=== PATIENT | female | born 1965 | race Two or more races ===

== ENCOUNTER 2025-02-20 15:10 | Emergency (ER) | payer OTHER ==
--- NOTE | 2025-02-20 15:36 | ED ---
Upper Extremity HPI - General Source: patient <Marycruz Lewis - Last Filed: 02/20/25 15:35> - General Source: patient, RN notes reviewed, old records reviewed Mode of arrival: ambulatory Limitations: no limitations - History of Present Illness MD Complaint: Injury to:: right, shoulder, arm -: week(s) Other Extremity Injury: Shoulder: Right Handedness: right Severity scale (1-10): 7 Improves With: none Worsens With: none Associated Symptoms: denies other symptoms Treatments Prior to Arrival: cold therapy <Mike Dumont - Last Filed: 02/20/25 22:36> - General Stated Complaint: R shoulder pain Time Seen by Provider: 02/20/25 15:35 - History of Present Illness Initial Comments: Quick [id number] female presenting for right shoulder pain. States pain has been worsening over the course of the week. Pain radiates to chest and down right arm. States she is having difficulty moving right upper extremity due to pain. Denies injury or trauma. (Marycruz Lewis) This is a 59-year-old female to the ER for evaluation of right shoulder pain. Patient has severe right shoulder pain patient has worsening pain pain worsening over the past week with chest pain and right arm pain. Difficult moving right upper extremity secondary to pain (Mike Dumont) - Related Data Allergies Allergy/AdvReac Type Severity Reaction Status Date / Time celecoxib Allergy Anaphylaxis Verified 02/20/25 15:56 Penicillins Allergy Anaphylaxis Verified 02/20/25 15:56 indomethacin [From Indocin] AdvReac Anaphylaxis Verified 02/20/25 15:56 lisinopril AdvReac Rapid Verified 02/20/25 15:56 Heart Rate metformin AdvReac Rapid Verified 02/20/25 15:56 Heart Rate metronidazole AdvReac Nausea & Verified 02/20/25 15:56 Vomiting NSAIDS (Non-Steroidal AdvReac Nausea & Verified 02/20/25 15:56 Anti-Inflamma Vomiting Sulfa (Sulfonamide AdvReac Nausea & Verified 02/20/25 15:56 Antibiotics) Vomiting triamcinolone AdvReac Nausea & Verified 02/20/25 15:56 Vomiting Review of Systems ROS Other: All systems not noted in ROS Statement are negative. <Marycruz Lewis - Last Filed: 02/20/25 15:35> ROS Other: All systems not noted in ROS Statement are negative. <Mike Dumont - Last Filed: 02/20/25 22:36> ROS Statement: Those systems with pertinent positive or pertinent negative responses have been documented in the HPI. General Exam <Marycruz Lewis - Last Filed: 02/20/25 15:35> General appearance: alert, in no apparent distress Head exam: Present: atraumatic, normocephalic, normal inspection Eye exam: Present: normal appearance, PERRL, EOMI. Absent: scleral icterus, conjunctival injection, periorbital swelling ENT exam: Present: normal exam, mucous membranes moist Neck exam: Present: normal inspection. Absent: tenderness, meningismus, lymphadenopathy Respiratory exam: Present: normal lung sounds bilaterally. Absent: respiratory distress, wheezes, rales, rhonchi, stridor Cardiovascular Exam: Present: regular rate, normal rhythm, normal heart sounds. Absent: systolic murmur, diastolic murmur, rubs, gallop, clicks GI/Abdominal exam: Present: soft, normal bowel sounds. Absent: distended, tenderness, guarding, rebound, rigid Extremities exam: Present: normal inspection, full ROM, normal capillary refill. Absent: tenderness, pedal edema, joint swelling, calf tenderness Back exam: Present: normal inspection Neurological exam: Present: alert, oriented X3, CN II-XII intact Psychiatric exam: Present: normal affect, normal mood Skin exam: Present: warm, dry, intact, normal color. Absent: rash <Mike Dumont - Last Filed: 02/20/25 22:36> - General Exam Comments Initial Comments: Visual Physical Exam General: Well-appearing, nontoxic, no acute distress. Head: Normocephalic, atraumatic Eyes: PERRLA, EOMI ENT: Airway patent Chest: Nonlabored breathing Skin: No visual rash, normal skin tone Neuro: Alert and oriented 3 Musculoskeletal: No gross abnormalities (Marycruz Lewis) Course <Mike Dumont - Last Filed: 02/20/25 22:36> Vital Signs 02/20/25 02/20/25 15:40 22:30 Temperature 98.9 F Pulse Rate 93 85 Respiratory 17 18 Rate Blood Pressure 176/103 139/78 O2 Sat by Pulse 96 97 Oximetry - Reevaluation(s) Reevaluation #1: 02/20/25 18:22 Medical records reviewed (Mike Dumont) Reevaluation #2: 02/20/25 18:22 Patient symptoms improving (Mike Dumont) Reevaluation #4: Was pt. sent in by a medical professional or institution (KAELYN Pang, DIRECTOR COMPENSATION, urgent care, hospital, or group home...) When possible be specific @ -no Did you speak to anyone other than the patient for history (EMS, parent, family, police, friend...)? What history was obtained from this source @ -no Did you review nursing and triage notes (agree or disagree)? Why? @ -agree Are old charts reviewed (outside hosp., previous admission, EMS record, old EKG, old radiological studies, urgent care reports/EKG's, group home records)? Report findings @ -yes Differential Diagnosis (chest pain, altered mental status, abdominal pain women, abdominal pain men, vaginal bleeding, weakness, fever, dyspnea, syncope, headache, dizziness, GI bleed, back pain, seizure, CVA, palpatations, mental health, musculoskeletal)? @ -prior EKG interpreted by me (3pts min.). @ -yes X-rays interpreted by me (1pt min.). @ -yes negative for acute disease CT interpreted by me (1pt min.). @ -no U/S interpreted by me (1pt. min.). @ -no What testing was considered but not performed or refused? (CT, X-rays, U/S, l abs)? Why? @ -none What meds were considered but not given or refused? Why? @ -none Did you discuss the management of the patient with other professionals (professionals i.e. KAELYN Pang, DIRECT[employer] COMPENSATION, lab, RT, psych nurse, social media coordinator, firearms sales associate, teacher, chief nursing officer, embedded case manager)? Give summary @ -no Was smoking cessation discussed for >3mins.? @ -no Was critical care preformed (if so, how long)? @ -no Were there social determinants of health that impacted care today? How? (Homelessness, low income, unemployed, alcoholism, drug addiction, transportation, low edu. Level, literacy, decrease access to med. care, usp, rehab)? @ -none Was there de-escalation of care discussed even if they declined (Discuss DNR or withdrawal of care, Hospice)? DNR status @ -no What co-morbidities impacted this encounter? (DM, HTN, Smoking, COPD, CAD, Cancer, CVA, ARF, Chemo, Hep., AIDS, mental health diagnosis, sleep apnea, morbid obesity)? @ -none Was patient admitted / discharged? Hospital course, mention meds given and route, prescriptions, significant lab abnormalities, going to OR and other pertinent info. @ - Undiagnosed new problem with uncertain prognosis? @ -no Drug Therapy requiring intensive monitoring for toxicity (Heparin, Nitro, Insulin, Cardizem)? @ -no Were any procedures done? @ -no Diagnosis/symptom? @ - Acute, or Chronic, or Acute on Chronic? @ -Acute Uncomplicated (without systemic symptoms) or Complicated (systemic symptoms)? @ -Complicated Side effects of treatment? @ -no Exacerbation, Progression, or Severe Exacerbation? @ -exacerbation Poses a threat to life or bodily function? How? (Chest pain, USA, OR, pneumonia, PE, COPD, DKA, ARF, appy, cholecystitis, CVA, Diverticulitis, Homicidal, Suicidal, threat to staff... and all critical care pts) @ -yes (Mike Dumont) Medical Decision Making <Marycruz Lewis - Last Filed: 02/20/25 15:35> - Lab Data Result diagrams: 02/20/25 18:20 02/20/25 18:20 - EKG Data -: EKG Interpreted by Me (EKG is sinus 85 HI 172 QRS 78 QTc 421) <Mike Dumont - Last Filed: 02/20/25 22:36> - Medical Decision Making I completed the quick note portion of this chart signed Marycruz Lewis PA-C (Marycruz Lewis) - Lab Data Lab Results 02/20/25 02/20/25 Range/Units 18:20 18:20 WBC 16.0 H (3.8-10.6) k/uL RBC 4.98 (3.80-5.40) m/uL Hgb 14.5 (11.4-16.0) gm/dL Hct 45.2 (34.0-46.0) % MCV 90.7 (80.0-100.0) fL MCH 29.1 (25.0-35.0) pg MCHC 32.1 (31.0-37.0) g/dL RDW 13.8 (11.5-15.5) % Plt Count 423 (150-450) k/uL MPV 7.9 Neutrophils % 71 % Lymphocytes % 21 % Monocytes % 4 % Eosinophils % 2 % Basophils % 0 % Neutrophils # 11.4 H (1.3-7.7) k/uL Lymphocytes # 3.3 (1.0-4.8) k/uL Monocytes # 0.7 (0-1.0) k/uL Eosinophils # 0.3 (0-0.7) k/uL Basophils # 0.1 (0-0.2) k/uL Sodium 138 (137-145) mmol/L Potassium 4.6 (3.5-5.1) mmol/L Chloride 101 (98-107) mmol/L Carbon Dioxide 26 (22-30) mmol/L Anion Gap 11 mmol/L BUN 18 H (7-17) mg/dL Creatinine 0.64 (0.52-1.04) mg/dL Est GFR (CKD-EPI)AfAm >90 (>60 ml/min/1.73 sqM) Est GFR (CKD-EPI)NonAf >90 (>60 ml/min/1.73 sqM) Glucose 137 H (74-99) mg/dL Calcium 9.3 (8.4-10.2) mg/dL Total Bilirubin 0.5 (0.2-1.3) mg/dL AST 29 (14-36) U/L ALT 33 (4-34) U/L Alkaline Phosphatase 93 (38-126) U/L Total Protein 8.0 (6.3-8.2) g/dL Albumin 4.8 (3.5-5.0) g/dL Disposition <Marycruz Lewis - Last Filed: 02/20/25 15:35> Is patient prescribed a controlled substance at d/c from ED?: No Time of Disposition: 22:35 <Mike Dumont - Last Filed: 02/20/25 22:36> Clinical Impression: Right shoulder pain Disposition: HOME SELF-CARE Condition: Good Instructions (If sedation given, give patient instructions): Swollen Joint (ED), Shoulder Pain (ED) Referrals: Damien Carvajal MD [Primary Care Provider] - 1-2 days Jairon Hidalgo MD [STAFF PHYSICIAN] - 1-2 days
--- NOTE | 2025-02-20 16:36 | XR ---
EXAMINATION TYPE: XR chest 2V DATE OF EXAM: 02/20/2025 4:26 PM COMPARISON: None. CLINICAL INDICATION: Female, 59 years old with history of right shoulder pain: Shortness of breath TECHNIQUE: XR chest 2V views of the chest are obtained. FINDINGS: Scattered senescent parenchymal changes noted. Hyperinflation compatible with COPD. No evidence for infiltrate. No evidence for atelectasis. Heart size is stable. Mediastinal structures are stable and grossly unremarkable. No evidence for hilar prominence. Degenerative changes dorsal spine. IMPRESSION: 1. No evidence for acute pulmonary disease. [facility], , 02/20/2025 4:33 PM
--- NOTE | 2025-02-20 16:40 | XR ---
EXAMINATION TYPE: XR shoulder complete RT DATE OF EXAM: 02/20/2025 CLINICAL HISTORY: pain TECHNIQUE: Three views of the right shoulder are obtained. COMPARISON: None FINDINGS: There is no acute fracture/dislocation evident. In the region of the subscapularis bursa there is a well-corticated ossific density measuring 1.6 x 1.3 cm both reflect a loose body. Consider MRI correlation. The acromioclavicular and glenohumeral joint spaces appear within normal limits. T he visualized ribs are intact and unremarkable. IMPRESSION: 1. There is no acute fracture or dislocation. 2. Suspect subscapularis bursa loose body. ICD 10 NO FRACTURE, INITIAL EVALUATION [facility], , 02/20/2025 4:38 PM
[2025-02-20 18:31] LABS: Basophils # (A) 0.1 k/uL (0-0.2); Basophils % (A) 0 %; Eosinophils # (A) 0.3 k/uL (0-0.7); Eosinophils % (A) 2 %; HCT 45.2 % (34.0-46.0); HGB 14.5 gm/dL (11.4-16.0); Lymphocytes # (A) 3.3 k/uL (1.0-4.8); Lymphocytes % (A) 21 %; MCH 29.1 pg (25.0-35.0); MCHC 32.1 g/dL (31.0-37.0); MCV 90.7 fL (80.0-100.0); Mean Platelet Volume 7.9; Monocytes # (A) 0.7 k/uL (0-1.0); Monocytes % (A) 4 %; Neutrophils # (A) 11.4 k/uL (1.3-7.7); Neutrophils % (A) 71 %; Platelet Count 423 k/uL (150-450); RBC 4.98 m/uL (3.80-5.40); RDW 13.8 % (11.5-15.5)
[2025-02-20 18:40] LABS: ALT 33 U/L (4-34); AST 29 U/L (14-36); African American GFR (CKD) >90 (>60 ml/min/1.73 sqM); Albumin 4.8 g/dL (3.5-5.0); Alkaline Phosphatase 93 U/L (38-126); Anion Gap 11 mmol/L; Blood Urea Nitrogen 18 mg/dL (7-17); Calcium 9.3 mg/dL (8.4-10.2); Carbon Dioxide 26 mmol/L (22-30); Chloride 101 mmol/L (98-107); Glucose 137 mg/dL (74-99); Non-African American GFR(CKD) >90 (>60 ml/min/1.73 sqM); Potassium 4.6 mmol/L (3.5-5.1); Sodium 138 mmol/L (137-145); Total Bilirubin 0.5 mg/dL (0.2-1.3)
[2025-02-20] MEDS: HYDROmorphone 1 MG/ML 1 ML SYRINGE IVP STA ×2 (19:38→22:32)
[2025-02-20] MEDS: SODIUM CHLORIDE 0.9% 500 ML 500 ML IV ONE (19:38)
--- NOTE | 2025-02-20 22:06 | CT ---
EXAMINATION TYPE: CT angio chest DATE OF EXAM: 02/20/2025 9:58 PM COMPARISON: None CLINICAL INDICATION: Female, 59 years old with history of pain; c/o right shoulder pain radiating chanel n arm TECHNIQUE/CONTRAST: CTA scan of the thorax is performed with IV Contrast, patient injected with 100 ml mL of Isovue 370, MIP images are created and reviewed these are created on a separate workstation.. CT DLP: 1112.6 mGycm, Automated exposure control for dose reduction was used. FINDINGS: Lungs/Pleura: No evidence of focal consolidation, pleural effusion or pneumothorax. Airway: Large airways are patent. Heart: Cardiomegaly is demonstrated. No significant coronary artery calcifications. Vasculature: There is no evidence for a filling defect within the pulmonary vasculature to suggest ac telida pulmonary embolism. The pulmonary artery is of normal size. Mediastinum: No gross evidence of adenopathy. Musculoskeletal: Moderate disc degeneration changes are present throughout the thoracolumbar spine se condary to osteophyte formation and facet joint arthropathy. Soft Tissues/lymph nodes: Calcified thyroid nodules bilaterally. Lower neck: No significant findings. Upper Abdomen: Diffuse low-attenuation to the liver parenchyma. The gallbladder surgically absent. IMPRESSION: 1. No evidence of pulmonary embolism. 2. Mild cardiomegaly. 3. Hepatic steatosis. [facility], , 02/20/2025 10:03 PM
--- NOTE | 2025-02-20 22:30 | CT ---
EXAMINATION TYPE: CT shoulder RT w con DATE OF EXAM: 02/20/2025 10:19 PM COMPARISON: . Extremity radiograph same day. CLINICAL INDICATION: Female, 59 years old with history of pain, right shoulder pain TECHNIQUE: Axial images were obtained of the CT shoulder RT w con, Additional coronal and sagittal re formatted images and soft tissue and bone window were obtained for review. 3-D reconstruction was cre ated on a separate workstation. Contrast used:100 ml mL of Isovue 370 with IV Contrast, (None if empty) Oral contrast used: (None if empty) CT DLP: 1077 mGycm, Automated exposure control for dose reduction was used. FINDINGS: There is subcutaneous lesion likely a sebaceous cyst posterior right shoulder measuring 21 x 16 mm.The osseous structures are intact. The psoas portions of the chest are unremarkable. Liver is low attenuation. There is a joint body in this the subcoracoid recess measuring 13 mm additionally t here is are calcifications within the subscapularis tendon near its insertion series 201 image 30. Th ere Is no evidence of fracture, subluxation, or dislocation. No significant soft tissue swelling or joint effusion is identified. No focal muscular atrophy or edema is identified. No radiopaque foreign body identified. IMPRESSION: 1. No evidence of fracture. 2. Subtle calcifications within the subscapularis tendon suggestive of calcific tendinosis/tendiniti s. Consider further evaluation with MRI. 3. 13 mm subcoracoid recess calcification. 4. Suspected sebaceous cyst posterior right shoulder measuring up to 21 x 16 mm. [facility], , 02/20/2025 10:28 PM
[2025-02-20 22:33] VITALS: RESP 18
--- NOTE | 2025-02-20 22:36 | US ---
EXAMINATION TYPE: US venous doppler duplex UE RT DATE OF EXAM: 02/20/2025 COMPARISON: NONE CLINICAL INDICATION: Female, 59 years old with history of pain; Pain x a couple days. No hx of DVT. P atient does not take blood thinners. TECHNIQUE: Grayscale, color Doppler and spectral Doppler imaging of the upper extremity. SIDE PERFORMED: Right VESSELS IMAGED: IJV Subclavian Vein Axilla Vein Brachial Vein(s) Radial Paired Veins Ulnar Paired Veins Cephalic Vein* Basilic Vein* (*superficial vessels) FINDINGS: Right Arm: No evidence of DVT. IMPRESSION: No evidence for deep vein thrombosis [facility], , 02/20/2025 10:34 PM
[2025-02-20] MEDS: traMADol 50 MG STARTER PACK 3 TAB BTL PO STA (23:31)
[2025-02-20] MEDS: ACET/COD 300 MG/30 MG STARTER PACK 6 TAB BTL PO STA (23:32)
[2025-02-20] MEDS: oxyCODONE-APAP 10-325MG 1 EACH TAB PO STA ×2 (23:32)
[2025-02-20 23:42] VITALS: BP 143/76; PULSE 87; TEMP 98.8
== END 2025-02-20 23:45 | disposition home or self-care (01) ==
LOC: EC 15:10
DX: M25.511 Pain in right shoulder (principal); Z88.0 Allergy status to penicillin; Z88.1 Allergy status to other antibiotic agents; Z88.2 Allergy status to sulfonamides; Z88.6 Allergy status to analgesic agent; Z88.8 Allergy status to other drugs, medicaments and biological substances
CPT/HCPCS: 36415; 93005; 85379; 80053; 85025; 73030; 71046; 93971; 71275; 73201; 99284; 96374; 96376; 96361; J1171; Q9967

== ENCOUNTER 2025-02-23 14:24 | Inpatient (IN) | payer OTHER ==
--- NOTE | 2025-02-23 14:49 | ED ---
Extremity Problem HPI - General Source: patient, RN notes reviewed Mode of arrival: ambulatory Limitations: no limitations <Castro Pastor - Last Filed: 02/23/25 14:46> <Cara Krishnan - Last Filed: 02/23/25 20:02> - General Stated complaint: R Shoulder Pain Time Seen by Provider: 02/23/25 14:40 - History of Present Illness Initial comments: This is a 59-year-old female presenting with right shoulder pain. Patient was seen in this ER on 02/20/2025 with elevated WBC and D-dimer. Chest CT and ultrasounds performed revealed no blood clots at the time and patient was discharged, advised follow-up with PCP. Patient states she reached out to Dr. Carvajal who advised that she may have an infection in her right shoulder, advising her to return to ER for admission for possible septic arthritis. (Castro Pastor) Patient is a 59-year-old female multiple comorbid medical conditions presenting to emergency department for chief complaint of right shoulder pain. Patient was evaluated by primary care provider prior to arrival where she is intractable to the emergency department with concern for possible right shoulder infection. Patient states that she began to experience pain of the right shoulder at the end of last week that was nontraumatic. Patient was evaluated in the emergency department on 02/20/2025 where thorough workup was conducted with no evidence for PE, DVT. Patient denies chest pain, heart palpitations, difficulty breathing, fevers, chills, nausea, vomiting. Currently patient has fentanyl patch in place and states that this is mildly helping her pain. She denies previous surgeries of the right shoulder or joint injections. (Cara Krishnan) - Related Data Home Medications Medication Instructions Recorded Confirmed Cholecalciferol [Vitamin D3 (125 250 mcg PO DAILY 02/23/25 02/23/25 Mcg = 5000 Iu)] Cyclobenzaprine [Flexeril] 10 mg PO HS PRN 02/23/25 02/23/25 Gabapentin 600 mg PO TID 02/23/25 02/23/25 Glimepiride [Amaryl] 2 mg PO BID 02/23/25 02/23/25 Levothyroxine Sodium [Synthroid] 50 mcg PO DAILY@0600 02/23/25 02/23/25 Lipase/Protease/Amylase [Creon Dr 1 cap PO DAILY PRN 02/23/25 02/23/25 24,000 Units Capsule] Lipase/Protease/Amylase [Creon Dr 2 cap PO AC-TID 02/23/25 02/23/25 24,000 Units Capsule] Losartan Potassium [Cozaar] 100 mg PO HS 02/23/25 02/23/25 Metoclopramide [Reglan] 5 mg PO DAILY PRN 02/23/25 02/23/25 Multivitamins, Thera [Multivitamin 1 tab PO DAILY 02/23/25 02/23/25 (formulary)] Pioglitazone [Actos] 30 mg PO DAILY 02/23/25 02/23/25 Pravastatin Sodium [Pravachol] 40 mg PO DAILY 02/23/25 02/23/25 Sertraline HCl 150 mg PO DAILY 02/23/25 02/23/25 amLODIPine [Norvasc] 10 mg PO DAILY 02/23/25 02/23/25 Allergies Allergy/AdvReac Type Severity Reaction Status Date / Time celecoxib Allergy Anaphylaxis Verified 02/23/25 19:05 Penicillins Allergy Anaphylaxis Verified 02/23/25 19:05 indomethacin [From Indocin] AdvReac Anaphylaxis Verified 02/23/25 19:05 lisinopril AdvReac Rapid Verified 02/23/25 19:05 Heart Rate metformin AdvReac Rapid Verified 02/23/25 19:05 Heart Rate metronidazole AdvReac Nausea & Verified 02/23/25 19:05 Vomiting NSAIDS (Non-Steroidal AdvReac Nausea & Verified 02/23/25 19:05 Anti-Inflamma Vomiting Sulfa (Sulfonamide AdvReac Nausea & Verified 02/23/25 19:05 Antibiotics) Vomiting triamcinolone AdvReac Nausea & Verified 02/23/25 19:05 Vomiting Review of Systems ROS Other: All systems not noted in ROS Statement are negative. <Castro Pastor - Last Filed: 02/23/25 14:46> ROS Other: All systems not noted in ROS Statement are negative. <Cara Krishnan - Last Filed: 02/23/25 20:02> ROS Statement: Those systems with pertinent positive or pertinent negative responses have been documented in the HPI. Past Medical History Past Medical History: Cancer, Diabetes Mellitus, Hyperlipidemia, Hypertension Additional Past Medical History / Comment(s): trigeminal neuralgia, hashimotos, psoriasis, arthritis, bursitis, sciatica, fibromyalgia, fatty liver disease History of Any Multi-Drug Resistant Organisms: ESBL Past Surgical History: Cholecystectomy, Hysterectomy Additional Past Surgical History / Comment(s): 75% of pancreas, oopherectomy, cervix Past Psychological History: Anxiety, Depression Smoking Status: Never smoker Past Alcohol Use History: None Reported Past Drug Use History: Marijuana <DarbyCastro - Last Filed: 02/23/25 14:46> General Exam <Castro Pastor - Last Filed: 02/23/25 14:46> General appearance: alert, in no apparent distress Respiratory exam: Present: normal lung sounds bilaterally. Absent: respiratory distress, wheezes, rales, rhonchi, stridor Cardiovascular Exam: Present: regular rate, normal rhythm, normal heart sounds. Absent: systolic murmur, diastolic murmur, rubs, gallop, clicks GI/Abdominal exam: Present: soft, normal bowel sounds. Absent: distended, tenderness, guarding, rebound, rigid Right Shoulder Exam: Present: tenderness, swelling. Absent: full ROM, abrasion, ecchymosis, deformity, crepitus, tenderness over AC joint Neuro motor exam: Present: wrist extension intact, thumb opposition intact Vascular: Present: radial pulse (2+). Absent: vascular compromise Back exam: Present: normal inspection. Absent: CVA tenderness (R), CVA tenderness (L) Neurological exam: Present: alert, oriented X3, CN II-XII intact <Cara Krishnan - Last Filed: 02/23/25 20:02> - General Exam Comments Initial Comments: Visual Physical Exam Vital signs reviewed General: Well-appearing, nontoxic, no acute distress. Head: Normocephalic, atraumatic Eyes: PERRLA, EOMI ENT: Airway patent Chest: Nonlabored breathing Skin: No visual rash, normal skin tone Neuro: Alert and oriented 3 Musculoskeletal: No gross abnormalities (Castro Pastor) Course Vital Signs 02/23/25 14:45 Temperature 98.3 F Pulse Rate 86 Respiratory 18 Rate Blood Pressure 155/78 O2 Sat by Pulse 94 L Oximetry Medical Decision Making <Castro Pastor - Last Filed: 02/23/25 14:46> - Lab Data Result diagrams: 02/23/25 17:37 02/23/25 17:37 <Cara Krishnan - Last Filed: 02/23/25 20:02> - Medical Decision Making I completed the quick note portion of this chart signed MALIK Cowart (Castro Pastor) Was pt. sent in by a medical professional or institution (KAELYN Pang, [employer], urgent care, hospital, or [facility]...) When possible be specific @ -Patient was advised by primary care provider to report to emergency room for further evaluation of right shoulder pain Did you speak to anyone other than the patient for history (EMS, parent, family, police, friend...)? What history was obtained from this source @ -No Did you review nursing and triage notes (agree or disagree)? Why? @ -I reviewed and agree with nursing and triage notes Were old charts reviewed (outside hosp., previous admission, EMS record, old EKG, old radiological studies, urgent care reports/EKG's, [facility] records)? Report findings @ -Reviewed patient's ER visit note from 02/20/25 where she underwent extensive evaluation including CT of the chest, chest x-ray, shoulder CT that results were unremarkable Differential Diagnosis (chest pain, altered mental status, abdominal pain women, abdominal pain men, vaginal bleeding, weakness, fever, dyspnea, syncope, hea dache, dizziness, GI bleed, back pain, seizure, CVA, palpatations, mental health, musculoskeletal)? @ -Differential Musculoskeletal Muscular strain, contusion, ligament sprain, fracture, arthritis, septic arthritis, bursitis, cellulitis, muscle spasm, nerve compression, DVT, arterial occlusion, herpes zoster, electrolyte abnormality, tumor.... This is not meant to be in all inclusive list EKG interpreted by me (3pts min.). @ -None X-rays interpreted by me (1pt min.). @ -None done CT interpreted by me (1pt min.). @ -None done U/S interpreted by me (1pt. min.). @ -None done What testing was considered but not performed or refused? (CT, X-rays, U/S, labs)? Why? @ -None What meds were considered but not given or refused? Why? @ -None Did you discuss the management of the patient with other professionals (professionals i.e. Dr., PA, [employer], lab, RT, psych nurse, social insurance analyst, rn clinical appeals, teacher, account officer, bottle caser)? Give summary @ -Dr. Carvajal for admission Was smoking cessation discussed for >3mins.? @ -No Was critical care preformed (if so, how long)? @ -No Were there social determinants of health that impacted care today? How? (Homelessness, low income, unemployed, alcoholism, drug addiction, transportation, low edu. Level, literacy, decrease access to med. care, [facility], rehab)? @ -No Was there de-escalation of care discussed even if they declined (Discuss DNR or withdrawal of care, Hospice)? DNR status @ -No What co-morbidities impacted this encounter? (DM, HTN, Smoking, COPD, CAD, Cancer, CVA, ARF, Chemo, Hep., AIDS, mental health diagnosis, sleep apnea, morbid obesity)? @ -None Was patient admitted / discharged? Hospital course, mention meds given and route, prescriptions, significant lab abnormalities, going to OR and other pertinent info. @ -Admitted. 59-year-old female presenting with right shoulder pain. Patient was advised by primary care provider to report to emergency department for further evaluation. Laboratory testing remarkable for mildly leukocytosis of 13.0. I spoke with patient's primary care provider who has requested the patient be admitted for pain management with orthopedic consult placed. Case discussed with Dr. Palma Undiagnosed new problem with uncertain prognosis? @ -No Drug Therapy requiring intensive monitoring for toxicity (Heparin, Nitro, Insulin, Cardizem)? @ -No Were any procedures done? @ -No Diagnosis/symptom? @ -Right shoulder pain Acute, or Chronic, or Acute on Chronic? @ -Acute Uncomplicated (without systemic symptoms) or Complicated (systemic symptoms)? @ -Uncomplicated Side effects of treatment? @ -No Exacerbation, Progression, or Severe Exacerbation? @ -No Poses a threat to life or bodily function? How? (Chest pain, [place], [place], pneumonia, PE, COPD, DKA, ARF, appy, cholecystitis, CVA, Diverticulitis, Homicidal, Suicidal, threat to staff... and all critical care pts) @ -No (Stieler,Cara) - Lab Data Lab Results 02/23/25 02/23/25 Range/Units 17:37 17:37 WBC 13.0 H (3.8-10.6) k/uL RBC 4.79 (3.80-5.40) m/uL Hgb 13.6 (11.4-16.0) gm/dL Hct 42.7 (34.0-46.0) % MCV 89.1 (80.0-100.0) fL MCH 28.3 (25.0-35.0) pg MCHC 31.8 (31.0-37.0) g/dL RDW 13.5 (11.5-15.5) % Plt Count 449 (150-450) k/uL MPV 7.6 Neutrophils % 67 % Lymphocytes % 22 % Monocytes % 6 % Eosinophils % 3 % Basophils % 0 % Neutrophils # 8.7 H (1.3-7.7) k/uL Lymphocytes # 2.9 (1.0-4.8) k/uL Monocytes # 0.7 (0-1.0) k/uL Eosinophils # 0.4 (0-0.7) k/uL Basophils # 0.0 (0-0.2) k/uL Sodium 136 L (137-145) mmol/L Potassium 4.4 (3.5-5.1) mmol/L Chloride 101 (98-107) mmol/L Carbon Dioxide 29 (22-30) mmol/L Anion Gap 6 mmol/L BUN 21 H (7-17) mg/dL Creatinine 0.70 (0.52-1.04) mg/dL Est GFR (CKD-EPI)AfAm >90 (>60 ml/min/1.73 sqM) Est GFR (CKD-EPI)NonAf >90 (>60 ml/min/1.73 sqM) Glucose 151 H (74-99) mg/dL Calcium 9.0 (8.4-10.2) mg/dL Total Bilirubin 0.4 (0.2-1.3) mg/dL AST 36 (14-36) U/L ALT 49 H (4-34) U/L Alkaline Phosphatase 80 (38-126) U/L C-Reactive Protein 3.3 H (<1.0) mg/dL Total Protein 7.5 (6.3-8.2) g/dL Albumin 4.5 (3.5-5.0) g/dL Disposition <Castro Pastor - Last Filed: 02/23/25 14:46> Decision to Admit Reason: Admit from EC Decision Date: 02/23/25 Decision Time: 18:21 <Cara Krishnan - Last Filed: 02/23/25 20:02> Clinical Impression: Right shoulder pain Disposition: ADMITTED IP TO THIS HOSP Condition: Stable
[2025-02-23 17:52] LABS: Basophils % (A) 0 %; Eosinophils # (A) 0.4 k/uL (0-0.7); Eosinophils % (A) 3 %; HCT 42.7 % (34.0-46.0); HGB 13.6 gm/dL (11.4-16.0); Lymphocytes # (A) 2.9 k/uL (1.0-4.8); Lymphocytes % (A) 22 %; MCH 28.3 pg (25.0-35.0); MCHC 31.8 g/dL (31.0-37.0); MCV 89.1 fL (80.0-100.0); Mean Platelet Volume 7.6; Monocytes # (A) 0.7 k/uL (0-1.0); Monocytes % (A) 6 %; Neutrophils # (A) 8.7 k/uL (1.3-7.7); Neutrophils % (A) 67 %; Platelet Count 449 k/uL (150-450); RBC 4.79 m/uL (3.80-5.40); RDW 13.5 % (11.5-15.5)
[2025-02-23 18:08] LABS: ALT 49 U/L (4-34); AST 36 U/L (14-36); African American GFR (CKD) >90 (>60 ml/min/1.73 sqM); Albumin 4.5 g/dL (3.5-5.0); Alkaline Phosphatase 80 U/L (38-126); Anion Gap 6 mmol/L; Blood Urea Nitrogen 21 mg/dL (7-17); C Reactive Protein 3.3 mg/dL (<1.0); Carbon Dioxide 29 mmol/L (22-30); Chloride 101 mmol/L (98-107); Glucose 151 mg/dL (74-99); Non-African American GFR(CKD) >90 (>60 ml/min/1.73 sqM); Potassium 4.4 mmol/L (3.5-5.1); Sodium 136 mmol/L (137-145); Total Bilirubin 0.4 mg/dL (0.2-1.3); Total Protein 7.5 g/dL (6.3-8.2)
[2025-02-23] MEDS ORDERED: HYDROmorphone 1 MG/ML 1 ML SYRINGE IVP PRN (18:21)
[2025-02-23] MEDS ORDERED: NALOXONE 0.4 MG/ML 1 ML VIAL IV PRN (18:21)
[2025-02-23] MEDS ORDERED: ACETAMINOPHEN TAB 325 MG TAB PO PRN (18:21)
[2025-02-23] MEDS ORDERED: METOCLOPRAMIDE 5 MG TAB PO PRN (21:56)
[2025-02-23] MEDS: GABAPENTIN 300 MG CAP PO SCH (23:19)
--- NOTE | 2025-02-23 23:30 | HP ---
HISTORY AND PHYSICAL CHIEF COMPLAINT: Pain in the shoulder. HISTORY OF PRESENT ILLNESS: This lady was in the emergency room on Saturday with pain in the right shoulder. It was noticed at that time that her right arm is edematous and slightly cyanotic. Appropriate tests were obtained including an ultrasound which failed to demonstrate a DVT. Chest x-ray was also clear. She was discharged to follow up in the office. In the office on admission, she continued to have edema and cyanosis in the right arm. There is no abnormality in the axilla or supraclavicular area, but she could hardly move her shoulder at all in any direction. She had no fever, or chills. REVIEW OF SYSTEMS: She has no other symptoms. Crown Buffer strength in the right hand seem to be normal. Past medical history, family history, personal and social histories reveal that she has multiple allergies including sulfa, BRANDEN inhibitors, metronidazole, Indocin, Celexa, Celebrex, and penicillin. MEDICATIONS: Include, 1. Tremfya. 2. Pravastatin. 3. Metoclopramide. 4. Amlodipine. 5. Insulin. 6. Losartan. 7. Flexeril. 8. Sertraline. 9. Thyroid. 10.Glimepiride. 11.Pioglitazone. 12.Gabapentin. Remainder of her history is unremarkable. There has been no history of trauma to the shoulder. She does not smoke. PHYSICAL EXAMINATION: VITAL SIGNS: Normal. HEAD, EARS, EYES, NOSE, MOUTH AND THROAT: Normal. NECK: Supple. There are no neck masses. There is no supraclavicular fullness. CHEST: Clear. CARDIAC: Normal. ABDOMEN: Soft, nontender. EXTREMITIES: The right axilla is normal. Normal other than the right arm which is edematous from the shoulder down and slightly cyanotic. She has extremely poor range of motion in the right shoulder, it is very painful. IMPRESSION: 1. Acute pain with loss of range of motion of the right shoulder. 2. Edema and cyanosis of the right arm. PLAN: 1. Bed rest. 2. IV fluids. 3. Appropriate blood work. 4. Orthopedic consult. 5. Blood cultures. MMODL / IJN: [id number] /
[2025-02-23] MEDS: CYCLOBENZAPRINE 10 MG TAB PO PRN (23:49)
[2025-02-24 01:41] LABS: Erythrocyte Sedimentation Rate 51 mm/Hr (0-30)
[2025-02-24] MEDS: LEVOTHYROXINE 50 MCG TAB PO SCH (05:50)
[2025-02-24] MEDS: NON FORMULARY DRUG (Lipase/Protease/Amylase [Creon Dr 24,000 Unit Capsule] 1 EACH Capsule) PO SCH (05:52)
[2025-02-24] MEDS: SERTRALINE 50 MG TAB PO SCH (08:44)
[2025-02-24] MEDS: PRAVASTATIN SODIUM 40 MG TAB PO SCH (08:44)
[2025-02-24] MEDS: CHOLECALCIFEROL 125 MCG (5000 IU) TABLET PO SCH (08:45)
[2025-02-24] MEDS: amLODIPine 10 MG TAB PO SCH (08:45)
[2025-02-24] MEDS: MULTIVITAMINS, THERA 1 EACH TAB PO SCH (08:45)
[2025-02-24 10:31] LABS: Basophils # (A) 0.04 X 10*3/uL (0.00-0.10); Basophils % (A) 0.4 %; Eosinophils # (A) 0.45 X 10*3/uL (0.04-0.35); Eosinophils % (A) 4.7 %; Lymphocytes # (A) 2.65 X 10*3/uL (0.90-5.00); Lymphocytes % (A) 27.9 %; MCH 28.6 pg (27.0-32.0); MCHC 31.6 g/dL (32.0-37.0); MCV 90.7 FL (80.0-97.0); Mean Platelet Volume 9.5 FL (9.5-12.2); Monocytes # (A) 0.86 X 10*3/uL (0.20-1.00); Monocytes % (A) 9.1 %; NRBC Per 100 WBC 0 X 10*3/uL (0.00-0.01); Neutrophils # (A) 5.47 X 10*3/uL (1.80-7.70); Neutrophils % (A) 57.6 %; Platelet Count 394 X 10*3/uL (140-440); RBC 4.19 X 10*6/uL (4.10-5.20); RDW 14.7 % (11.5-14.5)
[2025-02-24 10:45] LABS: ALT 37 U/L (8-44); AST 27 U/L (13-35); Albumin 3.7 g/dL (3.8-4.9); Albumin/Globulin Ratio 1.68 Ratio (1.60-3.17); Alkaline Phosphatase 65 U/L (41-126); BUN/Creat Ratio 22.71 Ratio (12.00-20.00); Blood Urea Nitrogen 15.9 mg/dL (9.0-27.0); Calcium 8.7 mg/dL (8.7-10.3); Carbon Dioxide 25.3 mmol/L (21.6-31.8); Chloride 104 mmol/L (96-109); Globulin 2.2 g/dL (1.6-3.3); Glucose 109 mg/dL (70-110); Potassium 4.5 mmol/L (3.5-5.5); Sodium 140 mmol/L (135-145); Total Bilirubin 0.2 mg/dL (0.3-1.2); Total Protein 5.9 g/dL (6.2-8.2)
--- NOTE | 2025-02-24 13:10 | P.CNOR ---
History of Present Illness - HPI Consult date: 02/24/25 History of present illness: This is a 59-year-old female who is admitted for right shoulder pain. Orthopedics is consulted and patient is seen and evaluated at bedside today. Patient states that her shoulder pain started last week and she denies any known injury. Patient states that she initially noticed swelling over the right shoulder, but this has resolved. Patient reports pain with any motion of the right shoulder that radiates to the upper arm. Patient denies any fever/chills, numbness or tingling, but does admit to associated weakness in the right arm. Patient denies any previous issues with right shoulder pain. Patient was e valuated in the emergency room for right shoulder pain on 02/20/2025 as well. At this time a CT, x-rays and a doppler were done. Patient was sent to the emergency room on 02/23/2025 after evaluation by her PCP to rule out infection of her shoulder. Patient's past medical history is significant for diabetes, hyperlipidemia, hypertension, trigeminal neuralgia, Remedios's thyroiditis, psoriatic arthritis, trochanteric bursitis, sciatica, fibromyalgia, fatty liver disease, neuroendocrine stage III pancreatic cancer and uterine cancer, history of paralytic ileus. Review of Systems See HPI. Past Medical History Past Medical History: Cancer, Diabetes Mellitus, Hyperlipidemia, Hypertension Additional Past Medical History / Comment(s): trigeminal neuralgia, hashimotos, psoriasis, arthritis, bursitis, sciatica, fibromyalgia, fatty liver disease, neuroendocrine stage 3 pancreatic cancer & uterial cancer, 4 blood transfusions, paralyic illeus, History of Any Multi-Drug Resistant Organisms: ESBL Year Discovered:: 2019 MDRO Source:: urine Past Surgical History: Cholecystectomy, Hysterectomy, Tonsillectomy Additional Past Surgical History / Comment(s): 75% of pancreas, oopherectomy, cervix, kidney stone removeal, urethra stent, hemorrid surgery, breast reduction, biopsys Past Anesthesia/Blood Transfusion Reactions: No Reported Reaction Past Psychological History: Anxiety, Depression Smoking Status: Never smoker Past Alcohol Use History: None Reported Past Drug Use History: Marijuana Medications and Allergies Home Medications Medication Instructions Recorded Confirmed Type Cholecalciferol [Vitamin D3 (125 250 mcg PO DAILY 02/23/25 02/23/25 History Mcg = 5000 Iu)] Cyclobenzaprine [Flexeril] 10 mg PO HS PRN 02/23/25 02/23/25 History Gabapentin 600 mg PO TID 02/23/25 02/23/25 History Glimepiride [Amaryl] 2 mg PO BID 02/23/25 02/23/25 History Levothyroxine Sodium [Synthroid] 50 mcg PO DAILY@0600 02/23/25 02/23/25 History Lipase/Protease/Amylase [Sherly Camargo 1 cap PO DAILY PRN 02/23/25 02/23/25 History 24,000 Units Capsule] Lipase/Protease/Amylase [Sherly Camargo 2 cap PO AC-TID 02/23/25 02/23/25 History 24,000 Units Capsule] Losartan Potassium [Cozaar] 100 mg PO HS 02/23/25 02/23/25 History Metoclopramide [Reglan] 5 mg PO DAILY PRN 02/23/25 02/23/25 History Multivitamins, Thera [Multivitamin 1 tab PO DAILY 02/23/25 02/23/25 History (formulary)] Pioglitazone [Actos] 30 mg PO DAILY 02/23/25 02/23/25 History Pravastatin Sodium [Pravachol] 40 mg PO DAILY 02/23/25 02/23/25 History Sertraline HCl 150 mg PO DAILY 02/23/25 02/23/25 History amLODIPine [Norvasc] 10 mg PO DAILY 02/23/25 02/23/25 History Allergies Allergy/AdvReac Type Severity Reaction Status Date / Time celecoxib Allergy Anaphylaxis Verified 02/23/25 19:05 Penicillins Allergy Anaphylaxis Verified 02/23/25 19:05 indomethacin [From Indocin] AdvReac Anaphylaxis Verified 02/23/25 19:05 lisinopril AdvReac Rapid Verified 02/23/25 19:05 Heart Rate metformin AdvReac Rapid Verified 02/23/25 19:05 Heart Rate metronidazole AdvReac Nausea & Verified 02/23/25 19:05 Vomiting NSAIDS (Non-Steroidal AdvReac Nausea & Verified 02/23/25 19:05 Anti-Inflamma Vomiting Sulfa (Sulfonamide AdvReac Nausea & Verified 02/23/25 19:05 Antibiotics) Vomiting triamcinolone AdvReac Nausea & Verified 02/23/25 19:05 Vomiting Physical Examination Right upper extremity exam: Mild generalized tenderness to palpation over the right shoulder. Patient has active forward flexion to just below shoulder height. Difficulty with active abduction. Pain and limitation with passive range of motion. No obvious swelling or erythema. Healing skin rash over the right upper extremity. No pain with motion of the right elbow, wrist or hand. Sensation intact. Nurovascular status and circulatory status are intact. Results X-rays of the right shoulder from 02/20/2025 are reviewed and are negative for any acute process. A CT report of the right shoulder dated 02/20/2025 shows: 1. No evidence of fracture. 2. Subtle calcifications within the subscapularis tendon suggestive of calcific tendinosis/tendinitis. Consider further evaluation with MRI. 3. 13 mm subcoracoid recess calcification. 4. Suspected sebaceous cyst posterior right shoulder measuring up to 21 x 16 mm. A venous Doppler ultrasound report showed: Dated 02/20/2025 no evidence of DVT - Labs Labs: Abnormal Lab Results - Last 24 Hours (Table) 02/23/25 02/23/25 02/24/25 Range/Units 17:37 17:37 07:21 WBC 13.0 H (3.8-10.6) k/uL MCHC 31.6 L (32.0-37.0) g/dL RDW 14.7 H (11.5-14.5) % Neutrophils # 8.7 H (1.3-7.7) k/uL Eosinophils # 0.45 H (0.04-0.35) X 10*3/uL ESR 51 H (0-30) mm/Hr Sodium 136 L (137-145) mmol/L BUN 21 H (7-17) mg/dL BUN/Creatinine Ratio (12.00-20.00) Ratio Glucose 151 H (74-99) mg/dL Total Bilirubin (0.3-1.2) mg/dL ALT 49 H (4-34) U/L C-Reactive Protein 3.3 H (<1.0) mg/dL Total Protein (6.2-8.2) g/dL Albumin (3.8-4.9) g/dL 02/24/25 Range/Units 07:21 WBC (3.8-10.6) k/uL MCHC (32.0-37.0) g/dL RDW (11.5-14.5) % Neutrophils # (1.3-7.7) k/uL Eosinophils # (0.04-0.35) X 10*3/uL ESR (0-30) mm/Hr Sodium (137-145) mmol/L BUN (7-17) mg/dL BUN/Creatinine Ratio 22.71 H (12.00-20.00) Ratio Glucose (74-99) mg/dL Total Bilirubin 0.2 L (0.3-1.2) mg/dL ALT (4-34) U/L C-Reactive Protein (<1.0) mg/dL Total Protein 5.9 L (6.2-8.2) g/dL Albumin 3.7 L (3.8-4.9) g/dL H & H 02/23/25 02/24/25 Range/Units 17:37 07:21 Hgb 13.6 12.0 (11.4-16.0) gm/dL Hct 42.7 38.0 (34.0-46.0) % Result Diagrams: 02/24/25 07:21 02/24/25 07:21 Assessment and Plan (1) Right shoulder pain Current Visit: Yes Status: Acute Code(s): M25.511 - PAIN IN RIGHT SHOULDER SNOMED Code(s): 2202920778 Plan: 1. Imaging is reviewed. White blood cell count is trending down and patient is well-appearing and afebrile. Low suspicion for septic arthritis. 2. An MRI of the right shoulder is ordered. 3. Further recommendations pending MRI results.
[2025-02-24] MEDS: LOSARTAN 50 MG TAB PO SCH (22:06)
--- NOTE | 2025-02-24 22:42 | PN ---
PROGRESS NOTE DATE OF SERVICE: 02/24/2025 CHIEF COMPLAINT: Acute right shoulder pain with loss of range of motion with an edema of the right arm. HISTORY OF PRESENT ILLNESS: This lady is doing just about the same. She is awaiting to be seen by Orthopedics. PHYSICAL EXAMINATION: She still has a very irritable right shoulder. Temperature is normal. She still has some swelling and cyanosis in the right arm. IMPRESSION: Acute right shoulder pain with edema and cyanosis of the right arm. PLAN: 1. Await for orthopedic evaluation. 2. Reassess blood work. 3. Possible MRI. MMODL / IJN: [id number] /
--- NOTE | 2025-02-25 10:03 | MR ---
EXAMINATION TYPE: MR shoulder RT wo con DATE OF EXAM: 02/25/2025 9:51 AM COMPARISON: CT right shoulder February 20, 2025 CLINICAL INDICATION: Female, 59 years old with history of pain right shoulder, Right shoulder pain. IV Contrast: cc (None if empty) TECHNIQUE: Multiplanar, multisequence imaging of the right shoulder is performed without contrast. FINDINGS: Rotator Cuff: Intact supraspinatus and infraspinatus tendons. Heterogeneous subscapularis tendon with surrounding fluid extending inferiorly. There are small ossific densities noted corresponding to rec ent CT. Muscle bulk is preserved. Acromioclavicular Joint: Moderate narrowing and capsular hypertrophy. Type II downsloping acromion. Glenohumeral Joint: Small to moderate-sized joint effusion. Narrowing is present. No significant spur ring. Labrum: The labrum appears grossly intact given limitation of non-arthrogram study. Biceps Tendon: The long head of biceps is in normal location within bicipital groove. Increased signa l intracapsular portion is noted. Bone marrow signal: No focal abnormal marrow signal is appreciated. Other: No additional significant abnormality is appreciated. IMPRESSION: 1. Significant tendinosis/partial tearing of the subscapularis tendon with heterotopic ossification a nd intramuscular edema noted. 2. Moderate degenerative changes are present. Type II downsloping acromion noted. 3. Tendinosis of intracapsular portion long head of biceps tendon. [facility], , 02/25/2025 10:01 AM
--- NOTE | 2025-02-25 12:51 | P.PN ---
Subjective Progress Note Date: 02/25/25 This is a 59 year-old female who is admitted for right shoulder pain. Patient is seen and evaluated at bedside today and states that she has been working on her shoulder motion. Patient denies any new complaints today. Objective - Vital Signs Vital signs: Vital Signs Temp 97.7 F 02/25/25 07:50 Pulse 72 02/25/25 07:50 Resp 16 02/25/25 07:50 BP 117/80 02/25/25 07:50 Pulse Ox 97 02/25/25 07:50 FiO2 Intake & Output 02/24/25 02/25/25 02/25/25 18:59 06:59 18:59 Intake Total 650 Balance 650 Intake: Oral 650 Other: # Voids 2 2 # Bowel Movements 0 - Exam Right upper extremity exam: Mild generalized tenderness to palpation over the right shoulder. Patient has active elevation to just below shoulder height. No obvious swelling or erythema. No pain with motion of the right elbow, wrist or hand. Sensation intact. Nurovascular status and circulatory status are intact. - Labs CBC & Chem 7: 02/24/25 07:21 02/24/25 07:21 Labs: Abnormal Lab Results - Last 24 Hours (Table) 02/24/25 Range/Units 07:21 C-Reactive Protein 2.50 H (0.00-0.80) mg/dL Microbiology - Last 24 Hours (Table) 02/23/25 20:43 Blood Culture Gram Stain - Preliminary Blood Blood Culture - Preliminary Molecular ID Assessment and Plan (1) Right shoulder pain Current Visit: Yes Status: Acute Code(s): M25.511 - PAIN IN RIGHT SHOULDER SNOMED Code(s): 9276750170 (2) Tendinosis of rotator cuff Current Visit: Yes Status: Acute Code(s): M67.819 - OTH DISRD OF SYNOVIUM AND TENDON, UNSPECIFIED SHOULDER SNOMED Code(s): 276336241 (3) Osteoarthritis of right shoulder Current Visit: Yes Status: Acute Code(s): M19.011 - PRIMARY OSTEOARTHRITIS, RIGHT SHOULDER SNOMED Code(s): 587695742851108 Plan: 1.An MRI report of the right shoulder dated 02/25/2025 shows: 1. Significant tendinosis/partial tearing of the subscapularis tendon with heterotopic ossification and intramuscular edema noted. 2. Moderate degenerative changes present. Type II downsloping acromion noted. 3. Tendinosis of the intracapsular portion long head of biceps tendon. 2. Patient's white blood cell count and vital signs are within normal limits. B ased on clinical and MRI findings, patient would likely benefit from a course of physical therapy and/or a cortisone injection which would be done on an outpatient basis.
--- NOTE | 2025-02-25 23:01 | PN ---
PROGRESS NOTE DATE OF SERVICE: 02/25/2025 CHIEF COMPLAINT: Acute arthritis of the right shoulder with cyanosis and edema of the right arm. HISTORY OF PRESENT ILLNESS: This lady feels her shoulder is getting a little bit better. She feels the swelling in the arm may be going down a little bit as well too. Studies so far have been negative. She is getting an MRI today. Physical exam seems to be about the same, but she has a little bit more range of motion in the shoulder. IMPRESSION: Acute arthritis right shoulder with edema and venous congestion of the right arm. PLAN: Await results of MRI and orthopedic consult. MMODL / IJN: [id number] /
[2025-02-26 08:14] VITALS: BP 133/84; PULSE 71; RESP 16; TEMP 98
--- NOTE | 2025-03-01 14:20 | DS ---
DISCHARGE SUMMARY CHIEF COMPLAINT: Acute pain in the right shoulder with edema and cyanosis of the right arm. HISTORY OF PRESENT ILLNESS AND PHYSICAL EXAMINATION: Details of this lady's history and physical can be found in the initial workup. LABORATORY STUDIES: While she is in the hospital, she had laboratory studies, details of which can be found in the laboratory section of her chart. COURSE IN THE HOSPITAL: After admission, she was placed on bedrest, started intravenous fluids and seen by Orthopedics. The etiology of her acute shoulder pain was not clear. An MRI was done, which was unremarkable. While she is in the hospital, the pain slowly began to subside as did the edema and her range of motion started to improve. It is felt that she could be discharged to home and she will be followed up in my office and by Orthopedics. FINAL DIAGNOSES: 1. Acute arthritis of the right shoulder. 2. Venous congestion and edema of the right arm. OPERATIONS: None. CONSULTATIONS: Orthopedics. CONDITION AT DISCHARGE: She has improved. MMCHAPARROL / IJN: [id number] /
== END 2025-02-26 12:58 | disposition home or self-care (01) | DRG 351 ==
LOC: EC 14:24 → 6NMEDSUR 19:14 → OBSVTOIN 19:14 → 1SOBS 23:01 → 4SSUR 02-25 18:32
PROVIDERS: ADMIT Family Medicine; ATTEND Family Medicine
DX: M19.011 Primary osteoarthritis, right shoulder (principal); E06.3 Autoimmune thyroiditis; E11.9 Type 2 diabetes mellitus without complications; L40.50 Arthropathic psoriasis, unspecified; I10 Essential (primary) hypertension; K76.0 Fatty (change of) liver, not elsewhere classified; I87.8 Other specified disorders of veins; E78.5 Hyperlipidemia, unspecified; M79.7 Fibromyalgia; Z79.84 Long term (current) use of oral hypoglycemic drugs; Z79.890 Hormone replacement therapy; Z90.411 Acquired partial absence of pancreas; Z90.722 Acquired absence of ovaries, bilateral; Z88.2 Allergy status to sulfonamides; Z88.8 Allergy status to other drugs, medicaments and biological substances; Z85.07 Personal history of malignant neoplasm of pancreas; Z79.899 Other long term (current) drug therapy; Z85.42 Personal history of malignant neoplasm of other parts of uterus
CPT/HCPCS: 36415; 80053; 85025; 85652; 86038; 86140; 87040; 87077; 87186; 99285

== ENCOUNTER → 2025-03-09 | Outpatient (CLI) | payer OTHER ==
--- NOTE | 2025-03-15 15:26 | MM ---
Reason for Exam: Screening (asymptomatic). Last mammogram was performed 3 year(s) and 11 month(s) ago. Patient History: Menarche at age 13. First Full-Term at age 33. Late child-bearing (after 32). Left ovary removed at age 52. Right ovary removed at age 52. Hysterectomy at age 52. Patient has history of breast feeding. Endometrial cancer, age 52. Other cancer, age 47. Patient used Hormonal Contraceptives for 10 years. 1985, Bilateral Reduction. Maternal grandmother had breast cancer, age 60. Mother had breast cancer, age 80. Risk Values: Alicia 5 year model risk: 2.9%. NCI Lifetime model risk: 16.6%. Prior Study Comparison: 02/02/2021 Bilateral Screening Mammogram, [facility]. 04/06/2021 Right Diagnostic Mammogram, [facility]. Tissue Density: There are scattered areas of fibroglandular density. Findings: Analyzed By CAD. Stable tiny benign-appearing round calcifications bilaterally. Benign-appearing bilateral axillary lymph nodes are redemonstrated. There is no suspicious new group of microcalcifications or new suspicious mass in either breast. Overall Assessment: Benign, BI-RAD 2 Management: Screening Mammogram of both breasts in 1 year. . Patient should continue monthly self-breast exams. A clinical breast exam by your physician is recommended on an annual basis. This exam should not preclude additional follow-up of suspicious palpable abnormalities. Note on Alicia scores and lifetime risk: 1. A Alicia score greater than 3% is considered moderate risk. If this is the case, consider specialist referral to assess eligibility for a risk reducing agent. 2. If overall lifetime risk for the development of breast cancer is 20% or higher, the patient may qualify for future screening with alternating mammogram and breast MRI. [facility], , 03/15/2025 3:23 PM. Electronically signed and approved by: Ivan Ruano M.D.
== END | disposition home or self-care (01) ==
LOC: RADMAMWWP 14:34 → EDUNIT# 14:45
PROVIDERS: ATTEND Family Medicine
DX: Z12.31 Encounter for screening mammogram for malignant neoplasm of breast (principal); R92.323 Mammographic fibroglandular density, bilateral breasts; Z80.3 Family history of malignant neoplasm of breast; Z92.0 Personal history of contraception
CPT/HCPCS: 77067